=== PATIENT | female | born 1960 | race Asian ===

== ENCOUNTER 2019-05-21 04:56 | Emergency (ER) | payer OTHER ==
[~2019-05-21] VITALS: Ht 162.6 cm; Wt 81.2 kg
[2019-05-21 05:04] VITALS: BP 126/84; Ht 162.6 cm; Wt 81.2 kg
== END 2019-05-21 06:03 | disposition home or self-care (01) ==
LOC: ED 04:56
DX: L76.22 Postprocedural hemorrhage of skin and subcutaneous tissue following other procedure (principal); E78.00 Pure hypercholesterolemia, unspecified; Z90.710 Acquired absence of both cervix and uterus